=== PATIENT | female | born 1955 | race American Indian/Alaskan Native ===

== ENCOUNTER 2019-02-07 13:31 | Emergency (ER) | payer SELFPAY ==
--- NOTE | 2019-02-07 14:26 | Event Note ---
ED Screening Note Date of service: 02/07/19 Time: 14:21 ED Screening Note: 63 y/o female c/o to er for dizziness and checked her blood pressure it was elevated. Took her medication Atenolol 100 mg and Maxzide 37.5/25mg . She is on Lovastatin 20 mg qhs. Denies any CP, SOB, or HADDAD. This initial assessment/diagnostic orders/clinical plan/treatment(s) is/are subject to change based on patients health status, clinical progression and re- assessment by fellow clinical providers in the ED. Further treatment and workup at subsequent clinical providers discretion. Patient/guardian urged not to elope from the ED as their condition may be serious if not clinically assessed and managed. Initial orders include:
[2019-02-07 15:22] LABS: Basophils % (Auto) 0.7 % (0.0-1.8); Eosinophils # (Auto) 0.2 K/mm3 (0.0-0.4); Hematocrit 44.2 % (30.3-42.9); Hemoglobin 14.6 gm/dl (10.1-14.3); Lymphocytes # (Auto) 1.2 K/mm3 (1.2-5.4); Lymphocytes % (Auto) 26.8 % (13.4-35.0); Mean Corpuscular HGB Conc 33 % (30-34); Mean Corpuscular Volume 85 fl (79-97); Monocytes # (Auto) 0.5 K/mm3 (0.0-0.8); Monocytes % (Auto) 10.4 % (0.0-7.3); Platelet Count 292 K/mm3 (140-440); Red Blood Count 5.19 M/mm3 (3.65-5.03); Red Cell Distribution Width 15.1 % (13.2-15.2)
[2019-02-07 15:29] LABS: BUN/Creatinine Ratio 14; Blood Urea Nitrogen 15 mg/dL (7-17); Calcium 9.5 mg/dL (8.4-10.2); Hemolysis Index 5
[2019-02-07] MEDS ORDERED: CATAPRES PO ONE (16:07)
[2019-02-07] MEDS ORDERED: K-DUR PO ONE (16:07)
--- NOTE | 2019-02-07 17:15 | Emergency Department Report ---
ED General Adult HPI - General Chief complaint: High BP Stated complaint: HBP Time Seen by Provider: 02/07/19 16:05 Source: patient Mode of arrival: Ambulatory Limitations: No Limitations - History of Present Illness Initial comments: This is a 63-year-old female nontoxic, well nourished in appearance, no acute signs of distress presents to the ED with c/o of elevated high blood pressure. Patient stated that earlier today she took her blood pressure and it was elevated. Patient denies any headache, dizziness, chest pain, shortness of breath, headache, stiff neck, numbness, tingling, back pain, or blurred vision. Patient states he does take her medication is atenolol and traiam/HCTZ. Patient agrees to having a primary care doctor that she follows and stated she will follow-up tomorrow. Patient denies any drug allergies. MD Complaint: hypertension -: days(s) (1) Radiation: non-radiation Severity scale (0 -10): 0 Consistency: constant Improves with: none Worsens with: none Associated Symptoms: denies: confusion, chest pain, cough, diaphoresis, fever/chills, headaches, loss of appetite, malaise, nausea/vomiting, rash, seizure, shortness of breath, syncope, weakness Treatments Prior to Arrival: none - Related Data Allergies Allergy/AdvReac Type Severity Reaction Status Date / Time No Known Allergies Allergy Unverified 02/07/19 13:35 ED Review of Systems ROS: Stated complaint: HBP Other details as noted in HPI Constitutional: denies: chills, fever Eyes: denies: eye pain, eye discharge, vision change ENT: denies: ear pain, throat pain Respiratory: denies: cough, shortness of breath, wheezing Cardiovascular: denies: chest pain, palpitations Endocrine: no symptoms reported Gastrointestinal: denies: abdominal pain, nausea, diarrhea Genitourinary: denies: urgency, dysuria, discharge Musculoskeletal: denies: back pain, joint swelling, arthralgia Skin: denies: rash, lesions Neurological: denies: headache, weakness, paresthesias Psychiatric: denies: anxiety, depression Hematological/Lymphatic: denies: easy bleeding, easy bruising ED Past Medical Hx - Past Medical History Hx Hypertension: Yes Additional medical history: elevated cholesterol - Surgical History Past Surgical History?: No Additional Surgical History: hysterectomy - Social History Smoking Status: Never Smoker Substance Use Type: None ED Physical Exam - General Limitations: No Limitations General appearance: alert, in no apparent distress - Head Head exam: Present: atraumatic, normocephalic - Eye Eye exam: Present: normal appearance, PERRL, EOMI - Neck Neck exam: Present: normal inspection, full ROM. Absent: tenderness, meningismus, lymphadenopathy - Respiratory Respiratory exam: Present: normal lung sounds bilaterally. Absent: respiratory distress, wheezes, rales, rhonchi, stridor, chest wall tenderness, accessory muscle use, decreased breath sounds, prolonged expiratory - Cardiovascular Cardiovascular Exam: Present: regular rate, normal rhythm, normal heart sounds. Absent: bradycardia, tachycardia, irregular rhythm, systolic murmur, diastolic murmur, rubs, gallop - Extremities Exam Extremities exam: Present: normal inspection, full ROM - Back Exam Back exam: Present: normal inspection, full ROM. Absent: tenderness, CVA tenderness (R), CVA tenderness (L), muscle spasm, paraspinal tenderness, vertebral tenderness, rash noted - Neurological Exam Neurological exam: Present: alert, oriented X3, normal gait - Psychiatric Psychiatric exam: Present: normal affect, normal mood - Skin Skin exam: Present: warm, dry, intact, normal color. Absent: rash ED Course Vital Signs 02/07/19 02/07/19 02/07/19 13:46 16:24 16:27 Temperature 98 F 98.3 F Pulse Rate 83 75 75 Respiratory 18 17 Rate Blood Pressure 212/119 194/111 Blood Pressure 194/111 [Left] O2 Sat by Pulse 100 100 Oximetry - Reevaluation(s) Reevaluation #1: 02/07/19 17:14 Patient is speaking in full sentences with no signs of distress noted. ED Medical Decision Making - Lab Data Result diagrams: 02/07/19 14:55 02/07/19 14:55 - Medical Decision Making This is a 63-year-old female that presents with uncontrolled hypertension and hypokalemia. Patient is stable and was examined by me. Labs are unremarkable. Patient did receive Catapres in the ER and blood pressure has decreased prior to discharge. Patient is asymptomatic. Patient was instructed to keep a diary of blood pressure and to present to primary care doctor. She did state that she has an appointment tomorrow with her primary care doctor. Patient received potassium chloride 40 MEQ. EKG normal sinus rhythm with no ST T abnormalities. Patient was referred to Follow-up with a primary care doctor in 2 days or if symptoms worsen and continue return to emergency room as soon as possible. At time of discharge, the patient does not seem toxic or ill in appearance. No acute signs of distress noted. Patient agrees to discharge treatment plan of care. No further questions noted by the patient. Critical care attestation.: If time is entered above; I have spent that time in minutes in the direct care of this critically ill patient, excluding procedure time. ED Disposition Clinical Impression: Uncontrolled hypertension, Hypokalemia Disposition: DC-01 TO HOME OR SELFCARE Is pt being admited?: No Does the pt Need Aspirin: No Condition: Stable Instructions: Hypertension (ED), Hypokalemia (ED) Additional Instructions: Follow-up with a primary care doctor in 2 days or if symptoms worsen and continue return to emergency room as soon as possible. Keep a daily diary of your blood pressure and presented to primary care doctor. Referrals: [facility] MD ROBINSON [Primary Care Provider] - 3-5 Days PRIMARY MD WERO [Referring] - 3-5 Days SANIYA SELBY MD [Staff Physician] - 3-[address] [facility] [Outside] - 3-5 Days [facility] [Outside] - 3-5 Days Forms: Work/School Release Form(ED)
[2019-02-07 17:51] VITALS: BP 145/90
== END 2019-02-07 17:51 | disposition home or self-care (01) ==
LOC: ED 13:31
DX: I10 Essential (primary) hypertension (principal); E87.6 Hypokalemia; E78.00 Pure hypercholesterolemia, unspecified; Z90.710 Acquired absence of both cervix and uterus
CPT/HCPCS: 36415; 80048; 85025; 93005; 93010

== ENCOUNTER 2021-09-16 04:19 | Emergency (ER) | payer SELFPAY ==
[2021-09-16] MEDS ORDERED: VALSARTAN 40 MG TAB PO ONE (08:34)
--- NOTE | 2021-09-16 08:49 | Emergency Department Report ---
ED General Adult HPI - General Chief complaint: High BP Stated complaint: HBP COUGH PUI?: Yes Time Seen by Provider: 09/16/21 08:34 Source: patient Mode of arrival: Ambulatory Limitations: No Limitations - History of Present Illness Initial comments: Chief complaint: "I am just feeling bad." HPI: This 66-year-old female with history of hypertension, hyperlipidemia who presents with generalized malaise. 3 weeks ago she was diagnosed with COVID-19. Subsequent tests was negative. Her mother recently diagnosed with influenza. Her father was hospitalized with COVID. She has persistent cough and generalized fatigue. She has missed 2 doses of amlodipine. She needs refill of amlodipine. She has refill of atenolol and lovastatin. She receives medical care at a [facility] in [facility]. She denies fever, chest pain, shortness of breath, leg pain. -: Gradual, week(s) (3 weeks of generalized malaise) Consistency: constant Improves with: none Worsens with: none Associated Symptoms: cough, malaise, other (Fatigue) - Related Data Previous Rx's Medication Instructions Recorded Last Taken Type Valsartan 80 mg PO DAILY 30 Days #30 09/16/21 Unknown Rx amLODIPine 10 mg PO DAILY 30 Days #30 tab 09/16/21 Unknown Rx Allergies Allergy/AdvReac Type Severity Reaction Status Date / Time No Known Allergies Allergy Verified 09/16/21 08:37 ED Review of Systems ROS: Stated complaint: HBP COUGH Other details as noted in HPI Comment: All other systems reviewed and negative Constitutional: denies: fever, malaise Eyes: denies: as per HPI Respiratory: cough. denies: shortness of breath Cardiovascular: denies: chest pain Gastrointestinal: denies: abdominal pain, nausea, vomiting Neurological: denies: headache ED Past Medical Hx - Past Medical History Previous Medical History?: Yes Hx Hypertension: Yes Additional medical history: Hyperlipidemia - Surgical History Past Surgical History?: Yes Additional Surgical History: hysterectomy, bilateral hernia repair - Family History Family history: hypertension, renal disease - Social History Smoking Status: Never Smoker Substance Use Type: None Other Social History: Occupation: [employer] - Medications Home Medications: Home Medications Medication Instructions Recorded Confirmed Last Taken Type Valsartan 80 mg PO DAILY 30 Days #30 09/16/21 Unknown Rx amLODIPine 10 mg PO DAILY 30 Days #30 tab 09/16/21 Unknown Rx ED Physical Exam - General Limitations: No Limitations General appearance: alert, in no apparent distress, other (Well-appearing, appears healthy appears comfortable) - Head Head exam: Present: atraumatic, normocephalic - Eye Eye exam: Present: normal appearance - ENT ENT exam: Present: mucous membranes moist - Neck Neck exam: Present: normal inspection, full ROM - Respiratory Respiratory exam: Present: normal lung sounds bilaterally. Absent: respiratory distress, wheezes, rales, rhonchi - Cardiovascular Cardiovascular Exam: Present: regular rate, normal rhythm, normal heart sounds. Absent: systolic murmur, diastolic murmur, rubs, gallop - GI/Abdominal GI/Abdominal exam: Present: soft, normal bowel sounds. Absent: distended, tenderness, guarding, rebound - Extremities Exam Extremities exam: Present: normal inspection - Back Exam Back exam: Present: normal inspection - Neurological Exam Neurological exam: Present: alert, oriented X3 - Psychiatric Psychiatric exam: Present: normal affect, normal mood - Skin Skin exam: Present: warm, dry, intact, normal color. Absent: rash ED Course Vital Signs 09/16/21 07:37 Temperature 98.3 F Pulse Rate 69 Respiratory 16 Rate Blood Pressure 200/108 [Right] O2 Sat by Pulse 100 Oximetry ED Medical Decision Making - Medical Decision Making Hypertensive urgency due to missed doses of amlodipine. First dose of valsartan p.o. given in emergency department I have replaced atenolol with valsartan. Without cardiac history, beta-blockers not indicated. I have prescribed amlodipine and valsartan. I encouraged her to discontinue atenolol. COVID-19: Persistent fatigue and cough. Recommended rest hydration. Oxygen saturation 100% today. Critical care attestation.: If time is entered above; I have spent that time in minutes in the direct care of this critically ill patient, excluding procedure time. ED Disposition Clinical Impression: Hypertensive urgency, COVID-19 Disposition: 01 HOME / SELF CARE / HOMELESS Is pt being admited?: No Does the pt Need Aspirin: No Condition: Stable Instructions: Managing Your Hypertension Additional Instructions: Please replace atenolol with new medication valsartan. Prescriptions: amLODIPine 10 mg PO DAILY 30 Days #30 tab Valsartan 80 mg PO DAILY 30 Days #30 Referrals: PRIMARY CARE, [Primary Care Provider] - 3-5 Days MILLY DAWN MD [Staff Physician] - 3-5 Days
[2021-09-16 10:06] VITALS: BP 185/97
== END 2021-09-16 10:06 | disposition home or self-care (01) ==
LOC: ED 04:19
DX: U07.1 COVID-19 (principal); I10 Essential (primary) hypertension; E78.5 Hyperlipidemia, unspecified
CPT/HCPCS: 93005; 93010; 99282